=== PATIENT | male | born 1945 | race Caucasian/White ===

== ENCOUNTER 2020-06-26 09:50 | Inpatient (IN) | payer MEDICARE ==
[~2020-06-26] VITALS: Ht 167.6 cm; Wt 83.3 kg
[2020-06-26 10:55] LABS: HEMATOCRIT 40.2 % (39.0-50.0); HEMOGLOBIN 13.3 g/dl (14.0-18.0); IMMATURE GRANULOCYTES 0.3 % (0.0-5.0); MEAN CORPUSCULAR HGB 30.1 pG CALC (26.0-32.0); MEAN CORPUSCULAR HGB CONC 33.1 g/dL CAL (32.0-36.0); NEUT# 2.61 thou/uL (1.82-7.42); RED BLOOD COUNT 4.42 mill/uL (4.70-6.10); RED CELL DISTRI WIDTH 13.1 % (11.5-15.5)
[2020-06-26 11:21] LABS: ACT PARTIAL THROMBO TIME 30.7 SECONDS (20.0-32.5); PROTHROMBIN TIME 10.1 SECONDS (9.0-12.5)
[2020-06-26 11:31] LABS: ALBUMIN 3.9 g/dL (3.2-5.0); ALKALINE PHOSPHATASE 106 u/l (38-126); ANION GAP 15 (6-22 (CALC)); BILIRUBIN, TOTAL 0.6 mg/dL (0.0-1.4); BUN 15 mg/dL (8-23); BUN/CREATININE RATIO 19 (12-20 (CALC)); CARBON DIOXIDE 22 mmol/l (22-30); CHLORIDE 101 mmol/l (95-108); CREATININE 0.8 mg/dL (0.7-1.3); GFR > 60 ML/MIN (>=60 (CALC)); GFR FOR AFR.AMER. > 60 ML/MIN (>=60 (CALC)); POTASSIUM 4.6 mmol/l (3.5-5.1); SGOT/AST 46 u/l (19-48); SODIUM 133 mmol/l (137-146); TOTAL PROTEIN 6.9 g/dL (6.3-8.2)
[2020-06-26 11:39] LABS: C-REACTIVE PROTEIN 5.8 mg/dL (0-0.9)
[2020-06-26] MEDS ORDERED: LIPITOR20 M1 PO (16:07)
[2020-06-26] MEDS ORDERED: NORVASC10 M1 PO (16:07)
[2020-06-26] MEDS ORDERED: LISINOPRIL40 MG PO (16:07)
[2020-06-26 17:05] VITALS: BP 147/82
[2020-06-26 19:50] VITALS: BP 115/63
[2020-06-27] VITALS (7 sets, daily range): BP systolic 120–160; BP diastolic 68–80
[2020-06-27 06:00] LABS: HEMATOCRIT 38.2 % (39.0-50.0); HEMOGLOBIN 13.1 g/dl (14.0-18.0); IMMATURE GRANULOCYTES 0.4 % (0.0-5.0); MEAN CELL VOLUME 89.3 fL CALC (80.0-100.0); MEAN CORPUSCULAR HGB 30.6 pG CALC (26.0-32.0); MEAN CORPUSCULAR HGB CONC 34.3 g/dL CAL (32.0-36.0); NEUT# 2.29 thou/uL (1.82-7.42); RED BLOOD COUNT 4.28 mill/uL (4.70-6.10)
[2020-06-27 06:02] LABS: ALBUMIN 3.6 g/dL (3.2-5.0); ALKALINE PHOSPHATASE 106 u/l (38-126); ANION GAP 13 (6-22 (CALC)); BILIRUBIN, TOTAL 0.4 mg/dL (0.0-1.4); BUN 11 mg/dL (8-23); BUN/CREATININE RATIO 18 (12-20 (CALC)); C-REACTIVE PROTEIN 5.2 mg/dL (0-0.9); CARBON DIOXIDE 21 mmol/l (22-30); CHLORIDE 106 mmol/l (95-108); CREATININE 0.6 mg/dL (0.7-1.3); GFR > 60 ML/MIN (>=60 (CALC)); GFR FOR AFR.AMER. > 60 ML/MIN (>=60 (CALC)); SGOT/AST 43 u/l (19-48); SODIUM 136 mmol/l (137-146); TOTAL PROTEIN 6.5 g/dL (6.3-8.2)
[2020-06-28 04:00] VITALS: BP 134/80
[2020-06-28 06:10] LABS: HEMOGLOBIN 12.9 g/dl (14.0-18.0); IMMATURE GRANULOCYTES 0.6 % (0.0-5.0); MEAN CELL VOLUME 90.3 fL CALC (80.0-100.0); MEAN CORPUSCULAR HGB 30.6 pG CALC (26.0-32.0); MEAN CORPUSCULAR HGB CONC 33.9 g/dL CAL (32.0-36.0); NEUT# 8.95 thou/uL (1.82-7.42); RED BLOOD COUNT 4.21 mill/uL (4.70-6.10)
[2020-06-28 06:46] LABS: ALBUMIN 3.5 g/dL (3.2-5.0); ALKALINE PHOSPHATASE 92 u/l (38-126); ANION GAP 10 (6-22 (CALC)); BILIRUBIN, TOTAL 0.4 mg/dL (0.0-1.4); BUN 15 mg/dL (8-23); BUN/CREATININE RATIO 23 (12-20 (CALC)); C-REACTIVE PROTEIN 1.9 mg/dL (0-0.9); CARBON DIOXIDE 24 mmol/l (22-30); CHLORIDE 105 mmol/l (95-108); CREATININE 0.6 mg/dL (0.7-1.3); GFR > 60 ML/MIN (>=60 (CALC)); GFR FOR AFR.AMER. > 60 ML/MIN (>=60 (CALC)); POTASSIUM 4.2 mmol/l (3.5-5.1); SODIUM 135 mmol/l (137-146); TOTAL PROTEIN 6.1 g/dL (6.3-8.2)
[2020-06-28 07:00] LABS: SGOT/AST 84 u/l (19-48)
[2020-06-28 08:13] VITALS: BP 141/79
[2020-06-28 11:49] VITALS: BP 127/69
[2020-06-28] MEDS ORDERED: DEXAMETHASON6 MG PO (13:42)
[2020-06-28] MEDS ORDERED: OXY1 (13:42)
[2020-06-28] MEDS ORDERED: ZITHROMAX250 MG PO (13:42)
[2020-06-28] MEDS ORDERED: ASPIRIN 81 LOW81 MG PO (13:43)
[2020-06-28 15:30] VITALS: BP 142/69
== END 2020-06-28 18:00 | disposition home or self-care (01) | DRG 177 ==
LOC: ED 09:50 → ED-I 12:55 → ED 13:06 → MS2 13:07
PROVIDERS: Nurse Practitioner; Student in an Organized Health Care Education/Training Program; ADMIT Internal Medicine; ATTEND Internal Medicine
DX: U07.1 COVID-19 (principal); J12.82 Pneumonia due to coronavirus disease 2019; J96.01 Acute respiratory failure with hypoxia; I10 Essential (primary) hypertension; E78.5 Hyperlipidemia, unspecified; Z79.899 Other long term (current) drug therapy
CPT/HCPCS: J1650; Q9967

== ENCOUNTER 2022-08-10 09:44 | Emergency (ER) | payer MEDICARE ==
[~2022-08-10] VITALS: Ht 167.6 cm; Wt 86.2 kg
[~2022-08-10 09:44] MED LIST: ASPIRIN 81 LOW81 MG PO; DEXAMETHASON6 MG PO; LIPITOR20 M1 PO; LISINOPRIL40 MG PO; NORVASC10 M1 PO; OXY1; ZITHROMAX250 MG PO
[2022-08-10] MEDS ORDERED: LEVOTHYROXIN50 MCG PO (10:39)
[2022-08-10 11:19] VITALS: BP 130/85
== END 2022-08-10 11:20 | disposition home or self-care (01) ==
LOC: ED 09:44
DX: S52.501A Unspecified fracture of the lower end of right radius, initial encounter for closed fracture (principal); I10 Essential (primary) hypertension; W19.XXXA Unspecified fall, initial encounter